=== PATIENT | male | born 1945 | race Caucasian/White ===

== ENCOUNTER → 2022-05-24 | Outpatient (CLI) | payer MEDICARE ==
[~2022-05-24] MED LIST: AMOX500C PO; AMOX500T PO; ASPI81CH33 PO; ATOR80TA59 PO; CLOP75TA2 PO; COLA100C5 PO; ECOT81TA5 PO; LISI5TAB11 PO; METO1TAB87 PO; NITR0.4S14 SL; OMEP-173 PO; PRED10PA2 PO; PRED10TA2 PO; PRED20TA PO
== END ==
LOC: M RAD 13:20
PROVIDERS: ATTEND Physician Assistant
DX: I65.23 Occlusion and stenosis of bilateral carotid arteries (principal)

== ENCOUNTER → 2022-12-27 | Outpatient (CLI) | payer MEDICARE | LOC: M RAD 13:51 | PROVIDERS: ATTEND Surgery Vascular Surgery | DX: I65.23 Occlusion and stenosis of bilateral carotid arteries (principal) ==

== ENCOUNTER → 2025-02-14 | Outpatient (CLI) | payer MEDICARE | LOC: M PLAIMG 13:23 | PROVIDERS: ATTEND Physician Assistant | DX: I35.0 Nonrheumatic aortic (valve) stenosis (principal) ==